=== PATIENT | male | born 1980 | race Caucasian/White ===

== ENCOUNTER 2019-04-20 19:53 | Emergency (ER) | payer MEDICARE, SELFPAY ==
--- NOTE | ~2019-04-20 | XR_ITS ---
XR foot LT min 3V 04/20/2019 20:50 Indication: Left foot pain Procedure: 4 views left foot Comparison: No prior studies for comparison. Findings: No fracture, subluxation or dislocation. Lisfranc joint intact. No significant soft tissue abnormality. No radiopaque foreign bodies. Impression: 1: No acute bone or joint abnormality. Reviewed, dictated and finalized at location A. [facility] Impression: 1: No acute bone or joint abnormality.
[2019-04-20 20:23] VITALS: BP 105/63; PULSE 79; RESP 17; TEMP 36.6; O2SAT 100
--- NOTE | 2019-04-20 20:37 | ED.BACK ---
HPI - Back Pain/Injury General Chief Complaint: Back Pain/Injury Stated Complaint: back and ankle pain Time Seen by Provider: 04/20/19 20:31 Source: patient and RN notes reviewed Mode of arrival: EMS Limitations: no limitations History of Present Illness HPI Narrative: Pt is a 38 y/o male who presents to the ED, via EMS, with c/o right lower back pain that radiates to his RLE that [place], [place] to [place], [place]. Pt is unsure of the cause of the pain. He notes that took the bus to [place] for a job interview but ran out of money to get a bus back to [place]. Pt denies a fall. Pt also reports left ankle pain that began after tripping of a tire, but denies numbness, tingling, urinary retention, constipation, and a fever. MD elicited complaint: back pain Onset (ago): hour(s) Timing: constant Location: right lower back Radiation: right upper leg Context: other (walking [facility] the [facility]) Associated symptoms: other (right ankle pain) Related Data Allergies Allergy/AdvReac Type Severity Reaction Status Date / Time divalproex sodium Allergy Rash Verified 04/20/19 20:22 [From Depakote] Review of Systems Review of Systems: All systems reviewed & are unremarkable except as noted in HPI and below Constitutional: Constitutional: Denies fever(s) Gastrointestinal: Gastrointestinal: Denies constipation Genitourinary: Genitourinary: Denies other (urinary retention) Musculoskeletal: Musculoskeletal: Reports back pain (right lower, radiates to his RLE) and Reports other (left ankle pain) Neurologic: Denies numbness and Denies tingling PMFSH Past Medical History Medical History (Updated 04/20/19 @ 22:06 by Jim Ivory MD) Epilepsy Surgical History Surgical History (Updated 04/20/19 @ 21:51 by Suzie Whyte) H/O shoulder surgery x3 Social History Social History (Updated 04/20/19 @ 21:51 by Suzie Whyte) Smoking status: Current every day smoker Tobacco type: cigarettes Alcohol intake: never Substance use: never Gender identity (if verbalized by the patient): Male Exam Narrative: Exam Narrative: GENERAL: Well-appearing, well-nourished, and in no acute distress. HEAD: Normocephalic, atraumatic. ENT: Mucous membranes moist. Poor dentition. CHEST: Clear to auscultation. No respiratory distress. HEART: Regular rate and rhythm. Normal peripheral pulses. ABDOMEN: Soft, nontender, nondistended. EXTREMITIES: Normal range of motion. No edema. TTP left foot latearlly in the midfoot area, no bruising/swelling. BACK: No midline tenderness of the T/L-spine, mild right lumbar paraspinal tendreness laterally. NEURO: Alert and oriented x3. Course Course Emergency Course: Informed of results. Pain resolved with toradol. D/c. Vital Signs Vital signs: Vital Signs Temperature 97.8 F 04/20/19 20:23 Pulse Rate 79 04/20/19 20:23 Respiratory Rate 17 04/20/19 20:23 Blood Pressure 105/63 04/20/19 20:23 Pulse Oximetry 100 04/20/19 20:23 Temperature 97.8 F 04/20/19 20:23 Pulse Rate 79 04/20/19 20:23 Respiratory Rate 17 04/20/19 20:23 Blood Pressure 105/63 04/20/19 20:23 Pulse Oximetry 100 04/20/19 20:23 MDM - Back Pain/Injury Imaging Data Attestation: I personally reviewed and interpreted this imaging study as follows: Radiologist's impression: ITS Impressions Foot X-Ray 04/20/19 20:53 Impression: 1: No acute bone or joint abnormality. Discharge Plan Discharge Clinical Impression: Foot pain, left Strain of lumbar region Qualifiers: Encounter type: initial encounter Qualified Code(s): S39.012A - Strain of muscle, fascia and tendon of lower back, initial encounter Patient Disposition: Home, Self-Care Condition: Stable Instructions: Low Back Strain (ED) Additional Instructions: Return to the ER if you have increased pain in your back, you develop lower extremity weakness/numbness/par
[2019-04-20] MEDS: KETOROLAC (*BKC) 60 MG/2 ML VIAL IM (21:16)
[2019-04-20 21:46] VITALS: TEMP 36.6
[2019-04-20 22:30] VITALS: BP 110/67; PULSE 71; RESP 18; TEMP 36.7; O2SAT 100
== END 2019-04-20 22:32 | disposition home or self-care (01) ==
PROVIDERS: Emergency Provider Emergency Medicine
DX: S39.012A Strain of muscle, fascia and tendon of lower back, initial encounter (principal); G40.909 Epilepsy, unspecified, not intractable, without status epilepticus; M79.672 Pain in left foot; X58.XXXA Exposure to other specified factors, initial encounter
CPT/HCPCS: 73630; 96372; 99283; J1885